=== PATIENT | male | born 2000 | race Caucasian/White ===

== ENCOUNTER 2024-07-05 13:26 | Emergency (ER) | payer OTHER, SELFPAY ==
[2024-07-05 13:39] VITALS: BP 145/84; PULSE 104; RESP 18; TEMP 37.3; O2SAT 97; BMI 39.3
[2024-07-05 13:58] LABS: Appearance Urine Clear (Clear); Bilirubin Urine Negative (Negative); Blood Urine Trace-intact (Negative); Color Urine Yellow (Yellow); Glucose Urine Negative (Negative); Ketones Urine Negative (Negative); Leukocyte Esterase Urine Negative (Negative); Nitrite Urine Negative (Negative); Protein Urine Negative (Negative); Specific Gravity Urine 1.025 (1.000-1.030); Urobilinogen Urine 0.2 (0.2-1.0)
[2024-07-05 14:21] LABS: RBC Urine 0-2 (0-2); WBC Urine 0-2 (0-5)
[2024-07-05 15:41] VITALS: BP 147/114; PULSE 115; RESP 20; O2SAT 98
--- NOTE | 2024-07-05 15:47 | ED.GENADULT ---
HPI - General Adult General Date Seen: 07/05/24 Chief complaint: Groin Pain Stated complaint: Pain urinating Time Seen by Provider: 07/05/24 15:47 History of Present Illness HPI narrative: This is a very pleasant previously healthy 24-year-old male presenting to the ER today with suprapubic pain associated with urination. He for the past couple of days he has had some pain in the suprapubic region which he thinks is in his bladder associated with moving around. Also sometimes pain and his bladder when he urinates. He is not really having penile dysuria with urination. He has also had some urinary frequency but no pain with urination. Urine has been normal swelling. No penile discharge. No new sexual partners. No other abdominal pain. No back pain or flank pain. He has had some chills but no objectively measured fevers. No nausea vomiting. Bowel movements have been normal. No pain in his testicles or groin. Related Data Home Medications ?Medication ?Instructions ?Recorded ?Confirmed No Known Home Medications 07/05/24 07/05/24 Allergies Allergy/AdvReac Type Severity Reaction Status Date / Time No Known Drug Allergies Allergy Verified 07/05/24 13:45 [facility] Non-prescribed substance use: denies use service: No Exam Narrative: Exam Narrative: Constitutional: Appears well-developed and well-nourished. Alert. Conversant. Non toxic. HENT: Head: Atraumatic. Nose: Nose normal. Mouth/Throat: Oral mucosa is clear and moist. no trismus. Pharynx normal. Tonsils symmetric. No tonsillar enlargement, erythema, or exudate. Eyes: Conjunctivae normal. EOM normal. Pupils equal, round, and reactive to light. No scleral icterus. Neck: Normal range of motion. Neck supple. No tracheal deviation present. Cardiovascular: Normal rate, regular rhythm. No gallop. No friction rub. No murmur heard. Symmetric radial artery pulses Pulmonary/Chest: Effort normal. No stridor. No respiratory distress. No wheezes. No rales. No rhonchi . No tenderness. Abdominal: Soft. Bowel sounds normal. No distension. No mass. No tenderness. He endorses that he has been having pain in the superior region but is not actually tender this time. No CVA tenderness. No rebound. No guarding. : Normal circumcised penis. No inguinal masses. He does have a few red lesions on his mons pubis which are consistent with ingrown hairs but no evidence for active infection or shingles. Musculoskeletal: RUE: Normal range of motion. No tenderness. No deformity LUE: Normal range of motion. No tenderness. No deformity RLE: Normal range of motion. No edema. No tenderness. No deformity LLE: Normal range of motion. No edema. No tenderness. No deformity Lymph: No cervical adenopathy. Neurological: Alert and oriented to person, place, and time. Normal strength. CN II-VII intact. No sensory deficit. GCS eye subscore is 4. GCS verbal subscore is 5. GCS motor subscore is 6. Normal coordination Skin: Skin is warm and dry. No rash noted. No pallor. Normal capillary refill. Psychiatric: Normal mood. Normal affect. Const: Vital Signs, click to edit/add: Vital Signs - 24 hr 07/05/24 13:39 07/05/24 15:41 Temperature 99.2 F Pulse Rate [Right Pulse Oximeter] 104 H 115 H Respiratory Rate 18 20 Blood Pressure [Ri ght Upper Arm] 145/84 H 147/114 H Pulse Oximetry 97 98 Oxygen Delivery Me thod Room Air Room Air Course Vital Signs Vital signs: Initial Vital Signs Temperature 99.2 F 07/05/24 13:39 Temperature Source Temporal Artery Scan 07/05/24 13:39 Pulse Rate 104 H 07/05/24 13:39 Pulse Rhythm Regular 07/05/24 13:39 Pulse Strength 3+ Normal 07/05/24 13:39 Respiratory Rate 18 07/05/24 13:39 Blood Pressure 145/84 H 07/05/24 13:39 Blood Pressure Mean 104 07/05/24 13:39 Blood Pressure Position Sitting 07/05/24 13:39 Pulse Oximetry 97 07/05/24 13:39 Oxygen Delivery Method Room Air 07/05/24 13:39 Vital Signs Temperature 99.2 F 07/05/24 13:39 Pulse Rate 104 H 07/05/24 13:39 Respiratory Rate 18 07/05/24 13:39 Blood Pressure 145/84 H 07/05/24 13:39 Pulse Oximetry 97 07/05/24 13:39 Oxygen Delivery Method Room Air 07/05/24 13:39 Temperature 99.2 F 07/05/24 13:39 Pulse Rate 115 H 07/05/24 15:41 Respiratory Rate 20 07/05/24 15:41 Blood Pressure 147/114 H 07/05/24 15:41 Pulse Oximetry 98 07/05/24 15:41 Oxygen Delivery Method Room Air 07/05/24 15:41 Medical Decision Making MDM Narrative Medical decision making narrative: Very pleasant 24-year-old previously healthy gentleman presenting to ER this afternoon with concern that he may have a UTI. He has never had UTIs before or other problems. He has been experiencing some bladder pain with urination and some urinary frequency for the past couple of days. Urinalysis and micro here in the ER today are essentially normal except 1st trace blood on the micro only. I do not see any evidence for pyuria, bacteriuria, positive nitrite, leukocyte esterase. At this point urinalysis is not really supportive of active UTI. However will send a urine culture to check. With the blood on the dip consider other etiologies. Consider possible kidney stone but he is not having any flank pain or other severe pain. He does not have any evidence for inguinal hernia or other inguinal masses. He is not currently sexually active and has no recent new sexual partners. No concern for ears chlamydia or gonorrhea. No penile pain or other canal dysuria degrees significant concern for urethritis. Therefore will hold off on GC/CT testing at this time Differential for suprapubic discomfort also includes other intra-abdominal pathology such as early appendicitis, diverticulitis, colitis,. Discussed options including further workup with labs, CT imaging. Patient was initially reluctant. We had a discussion. Using shared decision making we decided to hold off on further workup. In fluid that patient will discharge home, awaiting urine culture results. If he has any worsening symptoms he will return to the ER right away to be rechecked. Otherwise if he is not completely back to normal within 24-48 hours, will sees PCP or come back to the ER for recheck. Lab Data Labs: Lab Results 07/05/24 Range/Units 13:46 Urine Color Yellow (Yellow) Urine Appearance Clear (Clear) Urine pH 7.0 (5.0-8.5) Ur Specific [place] 1.025 (1.000-1.030) Urine Protein Negative (Negative) Urine Glucose (UA) Negative (Negative) Urine Ketones Negative (Negative) Urine Blood Trace-intact A (Negative) Urine Nitrite Negative (Negative) Urine Bilirubin Negative (Negative) Urine Urobilinogen 0.2 (0.2-1.0) Ur Leukocyte Esterase Negative (Negative) Urine RBC 0-2 (0-2) Urine WBC 0-2 (0-5) Ur Squamous Epith Cells None (None-Few) Urine Bacteria None (None) Discharge Plan Discharge Clinical Impression: Abdominal pain, suprapubic Patient Disposition: Home, Self-Care Condition: Stable Instructions: Abdominal Pain (ED) Additional Instructions: As we discussed, your urine culture will take 1 or 2 days to come back. If it is abnormal someone from a hospital call you to discuss the results. Since you are choosing not to do any further workup today, I want you to moonitor your symptoms carefully and come back to the ER right away if you get worse. Especially come back right away if you have high fever, flank or back pain, worsening abdominal pain, nausea vomiting, abdominal bloating. Unless your symptoms are completely resolved within 24-48 hours, please see your doctor or come back to the ER for a recheck. Prescriptions: No Action No Known Home Medications Stand Alone Forms: [employer] Info Instructions
== END 2024-07-05 16:15 | disposition home or self-care (01) ==
LOC: ED 16:13
PROVIDERS: Emergency Provider Emergency Medicine
DX: R10.9 Unspecified abdominal pain (principal)
CPT/HCPCS: 81001; 87086; 99282; 99283